=== PATIENT | female | born 2005 | race Two or more races ===

== ENCOUNTER → 2024-12-13 | Outpatient (CLI) | payer OTHER ==
[2024-12-13 15:22] LABS: PERCENT SATURATION 23.6 % (13.2-45.0)
[2024-12-13 15:26] LABS: FERRITIN 74.8 NG/ML (7.3-270.7)
[2024-12-13 15:31] LABS: FOLATE 21.96 NG/ML (>5.4)
[2024-12-14 13:26] LABS: TRANSFERRIN 285 mg/dL (188-341)
== END ==
LOC: M PLALAB 11:47
PROVIDERS: ATTEND Obstetrics & Gynecology
DX: O99.019 Anemia complicating pregnancy, unspecified trimester (principal); D50.9 Iron deficiency anemia, unspecified

== ENCOUNTER → 2024-12-13 | Outpatient (REF) | payer MEDICAID, OTHER | LOC: M PLALAB 11:14 | PROVIDERS: ATTEND Nurse Practitioner Family | DX: Z34.80 Encounter for supervision of other normal pregnancy, unspecified trimester (principal) ==

== ENCOUNTER → 2024-12-29 | Outpatient (CLI) | payer OTHER, SELFPAY | LOC: M WHC 14:16 | PROVIDERS: ATTEND Obstetrics & Gynecology | DX: Z34.02 Encounter for supervision of normal first pregnancy, second trimester (principal); Z3A.19 19 weeks gestation of pregnancy ==

== ENCOUNTER → 2025-03-01 | Outpatient (CLI) | payer MEDICAID, OTHER ==
[2025-03-01 15:37] LABS: PLATELET COUNT, AUTOMATED 270 10^3/uL (150-450)
[2025-03-01 16:01] LABS: GLUCOSE CHALLENGE TEST 1 HOUR 72 MG/DL (LESS THAN 140)
[2025-03-01 16:31] LABS: HIV 1&2 SCREEN NEGATIVE (NEGATIVE)
[2025-03-01 16:39] LABS: HEPATITIS C VIRUS ABY INDEX 0.02 INDEX (<0.8)
[2025-03-01 16:43] LABS: Trichomonas vaginalis (AMP) NOT DETECTED (NEGATIVE)
[2025-03-01 17:07] LABS: GC DNA AMPLIFICATION NEGATIVE (NEGATIVE)
== END ==
LOC: M PLALAB 11:17
PROVIDERS: ATTEND Obstetrics & Gynecology
DX: Z33.1 Pregnant state, incidental (principal)

== ENCOUNTER 2025-03-21 15:31 | Outpatient (CLI) | payer OTHER ==
[~2025-03-21] VITALS: Ht 149.9 cm; Wt 70.0 kg
[~2025-03-21 15:31] MED LIST: ALBUTEROL SULFATE 2.5 MG/0.5 ML INH CONCENTRATE NEB SOLN INH PRN; EPINEPHrine INJ 1 MG/ML 1ML AMP IM PRN; diphenhydrAMINE 50 MG/ML VIAL IV PRN
[2025-03-21 16:00] VITALS: BP 100/64; O2SAT 100
[2025-03-21] MEDS: IRON SUCROSE 200MG IVP IV ONE (16:43)
[2025-03-21] MEDS ORDERED: IRON SUCROSE 300 MG in NS 250 ML IV ONE (17:00)
[2025-03-21 17:26] VITALS: BP 119/69; O2SAT 99
== END 2025-03-21 17:27 ==
LOC: M INFU 15:31
PROVIDERS: ATTEND Obstetrics & Gynecology
DX: O99.019 Anemia complicating pregnancy, unspecified trimester (principal)
CPT/HCPCS: 96374; J1756

== ENCOUNTER 2025-03-28 15:22 | Outpatient (CLI) | payer OTHER ==
[~2025-03-28] VITALS: Ht 149.9 cm; Wt 68.2 kg
[2025-03-28 15:30] VITALS: BP 120/67; O2SAT 100
[2025-03-28] MEDS: IRON SUCROSE 200MG IVP IV ONE (15:41)
[2025-03-28 16:15] VITALS: BP 117/56; O2SAT 99
== END 2025-03-28 16:15 | disposition home or self-care (01) ==
LOC: M INFU 15:22
PROVIDERS: ATTEND Obstetrics & Gynecology
DX: O99.019 Anemia complicating pregnancy, unspecified trimester (principal); D64.9 Anemia, unspecified; Z3A.00 Weeks of gestation of pregnancy not specified
CPT/HCPCS: 96374; J1756

== ENCOUNTER 2025-04-06 13:40 | Outpatient (CLI) | payer OTHER ==
[~2025-04-06] VITALS: Ht 149.9 cm; Wt 70.0 kg
[2025-04-06 13:30] VITALS: BP 127/66; O2SAT 100
[2025-04-06] MEDS: IRON SUCROSE 200MG IVP IV ONE (13:50)
[2025-04-06 14:15] VITALS: BP 124/63; O2SAT 98
== END 2025-04-06 14:15 | disposition home or self-care (01) ==
LOC: M INFU 13:40
PROVIDERS: ATTEND Obstetrics & Gynecology
DX: O99.019 Anemia complicating pregnancy, unspecified trimester (principal)
CPT/HCPCS: 96374; J1756

== ENCOUNTER → 2025-04-14 | Outpatient (REF) | payer MEDICAID, OTHER | LOC: M PLALAB 11:14 | PROVIDERS: ATTEND Advanced Practice Midwife | DX: O99.019 Anemia complicating pregnancy, unspecified trimester (principal) ==

== ENCOUNTER → 2025-04-26 | Outpatient (REF) | payer MEDICAID, OTHER ==
[2025-04-26 14:40] LABS: PLATELET COUNT, AUTOMATED 212 10^3/uL (150-450)
== END ==
LOC: M SFHCWAGY 13:42
PROVIDERS: ATTEND Advanced Practice Midwife
DX: O99.019 Anemia complicating pregnancy, unspecified trimester (principal)

== ENCOUNTER 2025-05-08 05:51 | Outpatient (CLI) | payer OTHER, MEDICAID ==
[~2025-05-08] VITALS: Ht 147.3 cm; Wt 75.2 kg
[2025-05-08 06:06] VITALS: BP 122/78
[2025-05-08] MEDS ORDERED: PRENTAB9 PO (07:13)
[2025-05-08] MEDS ORDERED: HOME MED LIST COMPLETE! XX SCH (07:15)
[2025-05-08] MEDS ORDERED: COLA100C5 PO (07:15)
[2025-05-08] MEDS ORDERED: FERR325T19 PO (07:15)
[2025-05-08 07:21] VITALS: BP 120/60; O2SAT 99
[2025-05-08 09:27] VITALS: BP 135/81
[2025-05-08 10:39] VITALS: BP 132/86
[2025-05-08 10:41] VITALS: BP 124/75; O2SAT 99
[2025-05-17] MEDS ORDERED: ACET-683 PO (13:58)
== END 2025-05-08 10:50 | disposition home or self-care (01) ==
LOC: M LDO 05:51
PROVIDERS: ATTEND Obstetrics & Gynecology
DX: O47.1 False labor at or after 37 completed weeks of gestation (principal); O99.013 Anemia complicating pregnancy, third trimester; O99.323 Drug use complicating pregnancy, third trimester; O99.820 Streptococcus B carrier state complicating pregnancy; D50.9 Iron deficiency anemia, unspecified; F12.90 Cannabis use, unspecified, uncomplicated; B95.1 Streptococcus, group B, as the cause of diseases classified elsewhere; Z3A.38 38 weeks gestation of pregnancy
CPT/HCPCS: 59025; G0463